=== PATIENT | female | born 1955 | race Caucasian/White ===

== ENCOUNTER 2016-10-21 10:14 | Emergency (ER) | payer OTHER ==
[~2016-10-21] VITALS: Ht 160 cm; Wt 123.3 kg
[~2016-10-21 10:14] MED LIST: AMLODIPINE BESYL5 MG PO; ASPIR 8181 M1 PO; LISINOPRIL-HCT1 EAC3 PO; MOBIC15 MG PO; MOTRIN600 MG PO; MULTI-DAY PLUS1 EACH PO; OMEPRAZOLE20 MG PO; ULTRAM50 MG PO
[2016-10-21 13:15] VITALS: BP 115/70
== END 2016-10-21 13:16 | disposition home or self-care (01) ==
LOC: EME 10:14
DX: M25.561 Pain in right knee (principal); I10 Essential (primary) hypertension; Z79.82 Long term (current) use of aspirin
CPT/HCPCS: 93971; 99281; 99284